=== PATIENT | female | born 1940 | race Caucasian/White ===

== ENCOUNTER 2018-02-18 10:41 | Outpatient (CLI) | payer MEDICARE, BC | END 2018-02-18 10:42 | disposition home or self-care (01) | LOC: BICMAMMO 10:41 | PROVIDERS: ATTEND Family Medicine | DX: Z12.31 Encounter for screening mammogram for malignant neoplasm of breast (principal); Z80.3 Family history of malignant neoplasm of breast | CPT/HCPCS: 77063; 77067 ==

== ENCOUNTER 2018-06-09 10:04 | Emergency (ER) | payer MEDICARE, BC ==
[2018-06-09] MEDS ORDERED: Dexamethasone 4 mg/ml Vial ONE (11:03)
[2018-06-09] MEDS ORDERED: Metoclopramide HCl 10 MG/2 ML VIAL ONE (11:03)
--- NOTE | 2018-06-09 12:03 | RAD ---
SINGLE VIEW OF THE CHEST: Comparison: None. History: Dyspnea, irregular heart rhyme. FINDINGS: Two views of the chest show normal sized cardiomediastinal silhouette. There is no evidence of consol idation, mass, or pleural effusion. The bones are unremarkable. IMPRESSION: No evidence of acute cardiopulmonary disease. POS: [facility]
[2018-06-09] MEDS ORDERED: ISOVUE-370 76%-LOCM 1 ML ONE (12:04)
--- NOTE | 2018-06-09 12:09 | CT ---
BRAIN CT WITHOUT IV CONTRAST: History: 77-year-old female with history of hypertension and headache. FINDINGS: No focal mass or midline shift. No intra or extraaxial hemorrhage. Sinuses and mastoids are clear. IMPRESSION: No mass or bleed or other significant acute process. POS: [facility]
[2018-06-09 12:50] LABS: #Eosinphils 0.1 thou/uL (0.0-0.7); #Lymphocytes 1.7 thou/uL (1.20-3.40); #Monocytes 0.6 thou/uL (0.11-0.59); #Neutrophils 2.9 thou/uL (1.40-6.50); %Basophils 0.6 % (0.0-1.0); %Eosinophils 1.6 % (0.0-10.0); %Monocytes 11.9 % (0.0-10.0); %Neutrophils 54.8 % (42.0-75.0); Hemoglobin 13.8 g/dL (12.0-16.0); Mean Corpuscular HGB CONC 31.5 g/dL (32.0-36.0); Mean Corpuscular Volume 89.1 fL (78.0-98.0); Mean Platelet Volume 8.9 fL (7.4-10.4); Platelet Count 210 thou/uL (130-400); RBC Distribution Width 13.2 % (11.5-14.5); Red Blood Cell (RBC) Count 4.92 mill/uL (4.20-5.40); White Blood Cell (WBC) Count 5.4 thou/uL (4.8-10.8)
[2018-06-09 13:00] LABS: ALT (SGPT) 19 U/L (8-55); AST (SGOT) 22 U/L (5-34); Albumin 4.3 g/dL (3.4-4.8); Alkaline Phosphatase 113 U/L (40-150); Anion Gap 11 mmol/L (10-20); BUN (Urea Nitrogen) 16 mg/dL (9.8-20.1); Bilirubin, Total 0.7 mg/dL (0.2-1.2); CK (CPK) 188 U/L (29-168); Calc. Creatinine Clearance 0 mL/min (70-130); Calcium 8.9 mg/dL (7.8-10.44); Carbon Dioxide 25 mmol/L (23-31); Chloride 108 mmol/L (98-107); Estimated GFR-MDRD 45; Globulin 2.5 g/dL (2.4-3.5); Glucose 93 mg/dL (83-110); Lipase 34 U/L (8-78); Potassium 3.6 mmol/L (3.5-5.1); Protein, Total 6.8 g/dL (6.0-8.3); Sodium 140 mmol/L (136-145)
[2018-06-09 13:03] LABS: CKMB 3.5 ng/mL (0-6.6); Troponin I Less than 0.010 ng/mL (< 0.028)
--- NOTE | 2018-06-09 14:24 | CT ---
CTA CHEST WITH CONTRAST: HISTORY: Hypertension and headache. Elevated D-dimer. COMPARISON: Mammograms from 02/18/2018, as well as from 01/15/2017. TECHNIQUE: Multiple contiguous axial images were obtained in a CTA of the chest with contrast. Sagittal and cor onal reformats were performed. FINDINGS: The pulmonary arteries are well opacified without filling defects to suggest pulmonary emboli. The h eart is normal in size without a focal cardiac abnormality. No hilar or mediastinal lymphadenopathy is seen. No focal infiltrates are seen in the lungs. No pneumothorax or pleural effusion is seen. No suspici ous pulmonary nodule is present. There is a small to moderate hiatal hernia. The visualized subdiaphragmatic structures are otherwise unremarkable. There is a 1.3 cm area of nodularity at the medial aspect of the right breast. This appears stable c ompared to prior mammograms. IMPRESSION: 1. No evidence of pulmonary thromboembolism. 2. Moderate hiatal hernia. 3. Stable nodularity at the medial aspect of the right breast. This has been stable compared to dontae or mammograms and is likely benign. POS: [facility]
== END 2018-06-09 14:58 | disposition home or self-care (01) ==
LOC: ERS 10:04
DX: I16.0 Hypertensive urgency (principal); I45.10 Unspecified right bundle-branch block; I49.1 Atrial premature depolarization; R79.89 Other specified abnormal findings of blood chemistry; N63.0 Unspecified lump in unspecified breast; K21.9 Gastro-esophageal reflux disease without esophagitis; E78.5 Hyperlipidemia, unspecified; I10 Essential (primary) hypertension; F32.9 Major depressive disorder, single episode, unspecified; F41.9 Anxiety disorder, unspecified; Z79.899 Other long term (current) drug therapy
CPT/HCPCS: 36415; 70450; 71045; 71275; 80053; 82553; 83690; 83880; 84484; 85025; 85379; 93005; 96365; 96375; J1100; J2765

== ENCOUNTER 2019-06-05 13:13 | Outpatient (CLI) | payer MEDICARE, BC ==
--- NOTE | 2019-06-05 14:37 | MMO ---
Bilateral MAMMO Bilat Screen [facility]. CLINICAL HISTORY: Patient is 78 years old and is seen for screening. The patient has no family history of breast cancer. The patient has no personal history of cancer. VIEWS: The views performed were: bilateral craniocaudal with tomosynthesis and bilateral mediolateral oblique with tomosynthesis. FILMS COMPARED: The present examination has been compared to prior imaging studies performed at 01/15/2017 and 02/18/2018. This study has been interpreted with the assistance of computer-aided detection. MAMMOGRAM FINDINGS: There are scattered fibroglandular densities. There are benign appearing calcifications seen in both breasts. There are benign scattered densities in both breasts. There are no suspicious masses, suspicious calcifications, or new areas of architectural distortion. IMPRESSION: THERE IS NO MAMMOGRAPHIC EVIDENCE OF MALIGNANCY. A ROUTINE FOLLOW-UP MAMMOGRAM IN 1 YEAR IS RECOMMENDED. THE RESULTS OF THIS EXAM WERE SENT TO THE PATIENT. ACR BI-RADS Category 2 - Benign finding MAMMOGRAPHY NOTE: 1. A negative mammogram report should not delay a biopsy if a dominant of clinically suspicious mass is present. 2. Approximately 10% to 15% of breast cancers are not detected by mammography. 3. Adenosis and dense breasts may obscure an underlying neoplasm. Reported by: WILLIAMS BRITO MD Electonically Signed: [id number]
== END 2019-06-05 13:14 | disposition home or self-care (01) ==
LOC: BICMAMMO 13:13
PROVIDERS: ATTEND Family Medicine
DX: Z12.31 Encounter for screening mammogram for malignant neoplasm of breast (principal)
CPT/HCPCS: 77063; 77067